=== PATIENT | female | born 1965 | race Caucasian/White ===

== ENCOUNTER 2016-08-04 08:42 | Outpatient (CLI) | payer OTHER ==
[~2016-08-04 08:42] MED LIST: ADVIL200 M1 PO; LEVOTHYROXINE75 MCG PO; VITAMIN D-31000 UNIT PO
--- NOTE | 2016-08-07 10:00 | DIAGNOSTIC IMAGING REPORT ---
PROCEDURE: MG BILATERAL SCREENING W/CAD INDICATION: Screening. Family history of breast carcinoma (mother age 38). TECHNIQUE: Bilateral CC and MLO digital views. COMPARISON: Compared to 03/18/2015, 11/14/2013, and 11/25/2012. FINDINGS: Computer-aided detection applied. Moderately dense with a few dystrophic calcifications. No change. IMPRESSION: 1. Negative mammogram. RESULT CODE: 1- Negative. A. A negative report should not delay biopsy if a dominant or clinically suspicious mass is present. 10-15% of cancers are not identified by x-ray. B. A negative report may reinforce clinical impression. C. Adenosis and dense breasts may obscure an underlying neoplasm. D. False positive reports average 6-10%. E.. A yearly screening mammogram is recommended. A reminder letter will be scheduled.
== END 2016-08-04 23:00 ==
LOC: MAM SRH 08:42
DX: Z12.31 Encounter for screening mammogram for malignant neoplasm of breast (principal); Z80.3 Family history of malignant neoplasm of breast